=== PATIENT | male | born 2000 ===

== ENCOUNTER 2022-04-05 09:41 | Emergency (ER) | payer BC, SELFPAY ==
--- NOTE | ~2022-04-05 | CT_ITS ---
EXAMINATION: CT abdomen pelvis wo con DATE: 04/05/2022 11:02 INDICATION: Left sided groin pain TECHNIQUE: Computed tomography (CT) of the abdomen and pelvis was performed without intravenous contr ast. The dose-length product (DLP) was 260.95 mGy-cm. Automated exposure control and iterative recons truction technique were employed. COMPARISON: None FINDINGS: The lung bases are clear. The heart size is normal. The liver, spleen, pancreas, gallbladde r, and adrenal glands are normal. The kidneys are unremarkable. No pathologically enlarged abdominal or pelvic lymph nodes are identified. There is no free intraperitoneal gas or evidence of bowel obstr uction. IMPRESSION: 1. No CT correlate for the patient's symptoms. Reviewed, dictated and finalized at location A.
[2022-04-05 09:53] VITALS: BP 144/77; PULSE 88; RESP 16; TEMP 36.6; O2SAT 100
[2022-04-05 10:12] LABS: Basophils Absolute Auto 0.1 K/mm3 (0.0-0.1); Basophils Percent Auto 0.6 % (0.2-1.2); Eosinophils Absolute Auto 0.6 K/mm3 (0-0.3); Hematocrit 47.6 % (42.0-52.0); Hemoglobin 16.3 g/dL (14.0-18.0); Immature Granulocyte Absolute 0.02 K/mm3 (0.00-0.031); Immature Granulocyte Percent A 0.2 % (0-0.5); Lymphocytes Absolute Auto 2.23 K/mm3 (0.9-3.2); Lymphocytes Percent Auto 25.3 % (18.3-44.2); Mean Corpuscular HGB Conc 34.2 g/dl (32-36); Mean Corpuscular Hemoglobin 30.1 pg (26-34); Mean Corpuscular Volume 87.8 fl (80-100); Monocytes Absolute Auto 0.9 K/mm3 (0.1-0.6); Monocytes Percent Auto 10.1 % (2.6-8.5); Neutrophils Percent Auto 56.8 % (45.5-73.1); Platelet Count Result 296 k/mm3 (150-375); Red Blood Count 5.42 M/mm3 (4.6-6.20); Red Cell Distribution Width 12.1 % (11.5-14.5); White Blood Count 8.8 K/mm3 (4.5-10.0)
[2022-04-05 10:16] LABS: Appearance Urine Clear (Clear); Bilirubin Urine Negative (Negative); Blood Urine 1+ (Negative); Color Urine Yellow (Yellow); Glucose Urine UA Negative (Negative); Ketones Urine Trace mg/dL (Negative); Leukocyte Esterase Ur Negative LEU/UL (Negative); Nitrate Urine Negative (Negative); Protein Urine Negative (Negative); Specific Grav Ur 1.025 (1.001-1.035); Urobilinogen Urine 0.2 mg/dL (<2.0)
[2022-04-05 10:20] LABS: Alanine Aminotransferase 15 U/L (6-50); Albumin Level 5.4 g/dL (3.5-5.1); Alkaline Phosphatase 75 U/L (38-126); Anion Gap 9 mmol/L (8-16); Aspartate Amino Transferase 25 U/L (17-59); Bilirubin,Total 1.1 mg/dL (0.2-1.3); Blood Urea Nitrogen 19 mg/dL (9-20); Calcium 9.7 mg/dL (8.4-10.2); Carbon Dioxide 29 mmol/L (22-30); Chloride 100 mmol/L (98-107); Estimated CRCL calculation 106 ml/min; Estimated Glomerular Filt Rate > 60; Glucose 106 mg/dL (65-110); Lipase 229 U/L (23-300); Potassium 3.8 mmol/L (3.4-5.0); Sodium 138 mmol/L (137-145)
[2022-04-05 10:27] LABS: Add Urine Microscopic? YES; Mucus Urine Rare /lpf; WBC Urine 0-3 /hpf
--- NOTE | 2022-04-05 12:14 | ED.ABDPAIN ---
HPI - Abdominal Pain General Chief Complaint: Abdominal Pain Stated Complaint: Abd pain Time Seen by Provider: 04/05/22 10:55 History of Present Illness HPI narrative: 22-year-old male presenting to the emergency department for evaluation of right-sided groin pain. Patient states the symptoms have been present for the last few weeks. Patient states that they are worsened when he bears down for a bowel movement. Patient states he has been doing increased stretching and thinks he may have strained his groin. Patient denies any prior surgical history. Patient denies any swelling or pain in the testicle. Patient did take recent antibiotics for microhematuria. Patient denies any other significant past medical history. Related Data Allergies Allergy/AdvReac Type Severity Reaction Status Date / Time No Known Allergies Allergy Verified 04/05/22 09:52 Review of Systems Review of Systems: CONSTITUTIONAL: Denies fever, chills, or sweats. EYES: Denies visual changes, redness, or discharge. ENT: Denies rhinorrhea, congestion, sore throat, or otalgia. CARDIOVASCULAR: Denies chest pain, palpitations, or edema. RESPIRATORY: Denies cough or dyspnea. GASTROINTESTINAL: See HPI GENITOURINARY: Denies dysuria or hematuria. SKIN: Denies rash or itching. MUSCULOSKELETAL: Denies back pain, joint pain, or myalgia. NEUROLOGIC: Denies headache, numbness, or weakness. PMFSH Past Medical History Medical History History of gastroesophageal reflux (GERD) Family History Family History Mother Patient's mother is in good health Father Patient's father is in good health Grandparent Diabetes mellitus Sibling No problems noted. 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 HEAD: normocephalic, atraumatic. EYES: PERRLA/EOMI, conjunctivae clear. NECK: Supple. No adenopathy, no masses. RESPIRATORY: Airway patent, respirations nonlabored. Clear to auscultation bilaterally, no rales, rhonchi, wheezing. CARDIOVASCULAR: Regular rate and rhythm without murmurs rubs or gallops. ABDOMINAL: Mild left inguinal tenderness to palpation. No hernia palpated. Normal bowel sounds. Nontender abdomen. MUSCULOSKELETAL: Moves all extremities. Strength/ROM intact, No edema, No calf tenderness. NEURO: Alert. Cranial nerves II through XII intact. SKIN: Warm, dry. Normal Color Course Vital Signs Vital signs: Vital Signs Temperature 97.8 F 04/05/22 09:53 Pulse Rate 88 04/05/22 09:53 Respiratory Rate 16 04/05/22 09:53 Blood Pressure 144/77 H 04/05/22 09:53 Pulse Oximetry 100 04/05/22 09:53 Temperature 97.8 F 04/05/22 09:53 Pulse Rate 88 04/05/22 12:25 Respiratory Rate 14 04/05/22 12:25 Blood Pressure 132/85 04/05/22 12:25 Pulse Oximetry 97 04/05/22 12:25 MDM - Abdominal Pain Lab Data Attestation: I reviewed the patient's lab results. Result diagrams: 04/05/22 10:01 04/05/22 10:01 Labs: Lab Results 04/05/22 04/05/22 04/05/22 Range/Units 10:01 10:01 10:01 WBC 8.8 (4.5-10.0) K/mm3 RBC 5.42 (4.6-6.20) M/mm3 Hgb 16.3 (14.0-18.0) g/dL Hct 47.6 (42.0-52.0) % MCV 87.8 (80-100) fl MCH 30.1 (26-34) pg MCHC 34.2 (32-36) g/dl RDW 12.1 (11.5-14.5) % Plt Count 296 (150-375) k/mm3 MPV 9.0 (7.4-10.4) fl Immature Gran % (Auto) 0.2 (0-0.5) % Neut % (Auto) 56.8 (45.5-73.1) % Lymph % (Auto) 25.3 (18.3-44.2) % [place] % (Auto) 10.1 H (2.6-8.5) % Eos % (Auto) 7.0 H (0-
[2022-04-05 12:25] VITALS: BP 132/85; PULSE 88; RESP 14; O2SAT 97
== END 2022-04-05 12:25 | disposition home or self-care (01) ==
PROVIDERS: Emergency Provider Emergency Medicine
DX: R10.32 Left lower quadrant pain (principal); K21.9 Gastro-esophageal reflux disease without esophagitis
CPT/HCPCS: 36415; 74176; 80053; 81001; 83690; 85025; 99284